=== PATIENT | female | born 2000 | race Two or more races ===

== ENCOUNTER 2021-11-22 04:28 | Emergency (ER) | payer MEDICAID, OTHER ==
[~2021-11-22] VITALS: Ht 162.6 cm; Wt 88.5 kg
[2021-11-22] MEDS ORDERED: LIDOCAINE VISCOUS 2% 15ML UD PO ONE (06:15)
[2021-11-22] MEDS ORDERED: ALUM & MAG HYDROX-SIMETH LIQ(MAALOX) 30 ML PO ONE (06:15)
[2021-11-22] MEDS ORDERED: FAMOTIDINE 20 MG TAB PO ONE (06:15)
[2021-11-22 07:03] LABS: Urine Bacteria FEW /hpf (None Seen); Urine Blood 1+ /uL (Negative); Urine Mucus FEW (None Seen); Urine Specific Gravity 1.026 (1.001-1.035); Urine WBC 1 /hpf (0 - 5)
[2021-11-22 08:27] LABS: Basophils # (auto) 0 10 ^3/uL (0-0.2); Basophils % (auto) 0.2 % (0.0-2.0); Eosinophils # (auto) 0 10 ^3/uL (0-0.8); Eosinophils % (auto) 0.1 % (0.0-7.0); Hematocrit 39.4 % (36.0-46.0); Hemoglobin 13.8 g/dL (12.2-16.2); Lymphocytes # (auto) 1.5 10 ^3/uL (0.4-5.4); Mean Corpuscular Hemoglobin 31.4 pg (28.0-32.0); Mean Corpuscular Hgb Conc. 34.9 g/dL (32.0-36.0); Monocytes # (auto) 0.6 10 ^3/uL (0-1.3); Monocytes % (auto) 4.3 % (0.0-12.0); Neutrophils # (auto) 12.5 10 ^3/uL (1.6-8.6); Neutrophils % (auto) 85.4 % (37.0-80.0); Nucleated Red Blood Cells % 0.1 %; Red Blood Cells 4.38 10^6/uL (4.0-5.20); Red Cell Distribution Width 13.1 % (11.8-14.3); White Blood Cell 14.7 10^3/uL (4.4-10.8)
[2021-11-22 08:33] LABS: Potassium 3.7 mmol/L (3.5-5.1)
[2021-11-22 08:44] LABS: Albumin 3.8 g/dL (3.4-5.0); Bilirubin, Total 0.5 mg/dL (0.2-1.0); Calcium 8.6 mg/dL (8.5-10.1); Total Protein 7.1 g/dL (6.4-8.2)
[2021-11-22 11:52] VITALS: BP 118/72
[2021-11-22] MEDS ORDERED: OMEP-434 PO (11:54)
== END 2021-11-22 12:02 | disposition home or self-care (01) ==
LOC: ER 04:28
DX: K21.9 Gastro-esophageal reflux disease without esophagitis (principal); Z79.899 Other long term (current) drug therapy
CPT/HCPCS: 36415; 80053; 81001; 81025; 85025; 93005

== ENCOUNTER 2023-04-24 22:36 | Emergency (ER) | payer MEDICAID ==
[~2023-04-24] VITALS: Ht 154.9 cm; Wt 69.2 kg
[~2023-04-24 22:36] MED LIST: OMEP-434 PO
[2023-04-24] MEDS ORDERED: diphenhdrAMINE HCL 25 MG CAP PO ONE (23:30)
[2023-04-24] MEDS ORDERED: TETANUS-DIPTH-ACEL PERTUSSIS 0.5ML SYR Tdap IM ONE (23:30)
[2023-04-24] MEDS ORDERED: DexAMETHasone SOD PHOS 10MG/1ML VIAL INJ IM ONE (23:30)
[2023-04-24 23:44] VITALS: BP 109/70
[2023-04-24] MEDS ORDERED: DIPH25TA54 PO (23:58)
[2023-04-24] MEDS ORDERED: DOXY-286 PO (23:58)
== END 2023-04-25 00:16 | disposition home or self-care (01) ==
LOC: ER 22:36
DX: S00.561A Insect bite (nonvenomous) of lip, initial encounter (principal); W57.XXXA Bitten or stung by nonvenomous insect and other nonvenomous arthropods, initial encounter; Y93.89 Activity, other specified; Y92.89 Other specified places as the place of occurrence of the external cause; Y99.8 Other external cause status
CPT/HCPCS: 90471; 90715; 96372; 99284; J1100

== ENCOUNTER 2025-09-09 15:25 | Emergency (ER) | payer MEDICAID ==
[~2025-09-09] VITALS: Ht 160 cm; Wt 85.1 kg
[~2025-09-09 15:25] MED LIST changes: +DIPH25TA54 PO; +DOXY-286 PO
[2025-09-09 16:45] LABS: Hematocrit 35.8 % (36.0-46.0); Hemoglobin 13.0 g/dL (12.2-16.2); Mean Corpuscular Hemoglobin 32.6 pg (28.0-32.0); Mean Corpuscular Volume 89.8 fL (80.0-100.0); Nucleated Red Blood Cells % 0.0 %
[2025-09-09 16:52] LABS: Potassium 4.1 mmol/L (3.5-5.1); Sodium 140 mmol/L (136-145)
[2025-09-09 16:53] LABS: Calcium 8.7 mg/dL (8.7-10.4); Carbon Dioxide 21 mmol/L (20-31)
[2025-09-09 16:58] LABS: BUN/Creatinine Ratio 9.2 (10.0-20.0); Glucose 89 mg/dL (74-106)
[2025-09-09 17:12] LABS: Anion Gap 12 (5-15)
[2025-09-09 17:13] LABS: Blood Urea Nitrogen 8 mg/dL (9-23); Chloride 107 mmol/L (98-107)
--- NOTE | 2025-09-09 19:35 | ED.PDOC ---
HPI Allergic reaction HPI Comments 24-year-old female presents with chief complaint of swelling to bilateral hands and itchiness. Patient reports on having a recent allergic reaction to unknown allergen a few days ago and and being treated with prednisone, Bactrim, and topical ointment. She states on symptoms returning, today, for unknown reason. No reported history of known allergies. Denies any further acute symptoms. Chief Complaint: Allergic Reaction Time Seen by MD: 16:00 Reviewed Notes: Nurses Notes, Medications, Allergies Allergies: Coded Allergies: NO KNOWN ALLERGIES (Unverified , 11/22/21) Home Meds Active Scripts Diphenhydramine Hcl (Benadryl Allergy) 25 Mg Tab, 1 TAB PO Q6HR, #20 TAB as needed for allergy sx Prov:YANGRACHNAALDA Q [employer] F[employer]ER 04/24/23 Doxycycline Hyclate (DOXYCYCLINE HYCLATE) 100 Mg Tab, 1 TAB PO BID for 10 Days, #20 TAB Prov:YANGNORALDA Q [employer] 04/24/23 Omeprazole Magnesium (Omeprazole) 20 Mg Tab, 20 MG PO DAILY for 14 Days, #14 TAB Prov:JEFF LEMOS MD 11/22/21 Information Source: Patient Mode of Arrival: Ambulatory Past Medical History PAST MEDICAL HISTORY: Denies Surgical History: Denies all surgeries 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 History: No Pertinent 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 OPERATOR History Family History Family History: Reviewed,noncontributory to illness Social History Smoker: Non-Smoker Alcohol: Denies ETOH Use Drugs: Denies Drug Use Lives In: Home All Other Systems: Reviewed and Negative (Comprehensive review of system) Physical Exam General Appearance: No Apparent Distress, Normal HEENT: Normal ENT Inspection, Pharynx Normal, TMs Normal Neck: Full Range of Motion, Non-Tender, Normal, Normal Inspection Respiratory: Chest Non-Tender, Lungs Clear, No Accessory Muscle Use, No Respiratory Distress, Normal Breath Sounds Cardiovascular: No Edema, No JVD, No Murmur, No Gallop, Normal Peripheral Pulses, Regular Rate/Rhythm Breast Exam: Deferred Gastrointestinal: No Organomegaly, Non Tender, No Pulsatile Mass, Normal Bowel Sounds, Soft Genitalia: Deferred Pelvic: Deferred Rectal: Deferred Extremities: No calf tenderness, Normal capillary refill, Normal range of motion, Non-tender, No pedal edema, Swelling (Bilateral hand swelling) Musculoskeletal : Apperance: Normal Neurologic: Alert, can 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 Was a procedure done?: No Differential diagnosis (all) Differential Diagnosis: Anaphylaxis, Angioedema, Contact Dermatitis, Drug Reaction, Urticaria X-Ray, Labs, Meds, VS Vital Signs Date Time Temp Pulse Resp B/P (MAP) Pulse Ox O2 Delivery O2 Flow Rate FiO2 09/09/25 20:19 97.8 84 16 120/80 (93) 97 97.8 09/09/25 15:42 97.9 18 18 125/61 99 97.9 Lab Test 09/09/25 16:22 Range/Units White Blood Count 8.6 4.4-10.8 10^3/uL Red Blood Count 3.99 L 4.0-5.20 10^6/uL Hemoglobin 13.0 12.2-16.2 g/dL Hematocrit 35.8 L 36.0-46.0 % Mean Corpuscular Volume 89.8 80.0-100.0 fL Mean Corpuscular Hemoglobin 32.6 H 28.0-32.0 pg Mean Corpuscular Hemoglobin Concent 36.3 H 32.0-36.0 g/dL Red Cell Distribution Width 13.3 11.8-14.3 % Platelet Count 184 140-450 10^3/uL Mean Platelet Volume 8.6 6.9-10.8 fL Neutrophils (%) (Auto) 79.2 37.0-80.0 % Lymphocytes (%) (Auto) 13.8 10.0-50.0 % Monocytes (%) (Auto) 5.6 0.0-12.0 % Eosinophils (%) (Auto) 1.2 0.0-7.0 % Basophils (%) (Auto) 0.2 0.0-2.0 % Neutrophils # (Auto) 6.8 1.6-8.6 10 ^3/uL Lymphocytes # (Auto) 1.2 0.4-5.4 10 ^3/uL Monocytes # (Auto) 0.5 0-1.3 10 ^3/uL Eosinophils # (Auto) 0.1 0-0.8 10 ^3/uL Basophils # (Auto) 0 0-0.2 10 ^3/uL Nucleated Red Blood Cells 0.0 % Sodium Level 140 136-145 mmol/L Potassium Level 4.1 3.5-5.1 mmol/L Chloride Level 107 98-107 mmol/L Carbon Dioxide Level 21 20-31 mmol/L Anion Gap 12 5-15 Blood Urea Nitrogen 8 L 9-23 mg/dL Creatinine 0.87 0.550-1.02 mg/dL Glomerular Filtration Rate Calc 95 >90 mL/min BUN/Creatinine Ratio 9.2 L 10.0-20.0 Serum Glucose 89 74-106 mg/dL Calcium Level 8.7 8.7-10.4 mg/dL Current Medications Medications (Trade) Dose Ordered Sig/Sabine Route Start Time Stop Time Status Last Admin Sodium Chloride 1,000 ml @ 1,000 mls/hr Q1H ONCE IV 09/09/25 19:15 09/09/25 20:14 DC 09/09/25 20:17 Methylprednisolone Sodium Succinate (Solu Medrol) 62.5 mg ONCE ONCE IV 09/09/25 19:15 09/09/25 19:18 DC 09/09/25 20:14 Diphenhydramine HCl (Benadryl Injection) 25 mg ONCE ONCE IV 09/09/25 19:15 09/09/25 19:18 DC 09/09/25 20:13 Famotidine (Pepcid Injection) 20 mg ONCE ONCE IV 09/09/25 19:15 09/09/25 19:18 DC 09/09/25 20:13 Time of 1ST Reevaluation: 16:30 Reevaluation 1ST: Unchanged Patient Education/Counseling: Diagnosis, Treatment, Need For Follow Up Family Education/Counseling: No Family Present SEPSIS Sepsis Screen Date sepsis recognized/suspect: Sep 09, 2025 Time Sepsis recognized/suspect: 1546 Recent Procedure: No On Antibiotic Therapy: No Respiratory Rate >20: No Heart Rate >90: No Temp<36 C (96.8 F) or >38.3 C: No SBP <90 or MAP <65 mmHG: No New Acute Mental Status Change: No Is the patient on CPAP, BIPAP,: No Vital Signs Date Time Temp Pulse Resp B/P (MAP) Pulse Ox O2 Delivery O2 Flow Rate FiO2 09/09/25 20:19 97.8 84 16 120/80 (93) 97 97.8 09/09/25 15:42 97.9 18 18 125/61 99 97.9 Laboratory Tests Test 09/09/25 16:22 White Blood Count 8.6 10^3/uL (4.4-10.8) Medications Medications Dose Ordered Sig/Sabine Route Start Time Stop Time Status Last Admin Dose Admin Diphenhydramine HCl 25 mg ONCE ONCE IV 09/09/25 19:15 09/09/25 19:18 DC 09/09/25 20:13 Famotidine 20 mg ONCE ONCE IV 09/09/25 19:15 09/09/25 19:18 DC 09/09/25 20:13 Methylprednisolone Sodium Succinate 62.5 mg ONCE ONCE IV 09/09/25 19:15 09/09/25 19:18 DC 09/09/25 20:14 Sodium Chloride 1,000 ml @ 1,000 mls/hr Q1H ONCE IV 09/09/25 19:15 09/09/25 20:14 DC 09/09/25 20:17 Departure 1 Departure Time of Disposition: 20:48 (Patient likely with a allergic reaction. Patient's symptoms appear to have improved. We will discharge patient home with outpatient follow up) Impression: Primary Impression: Allergic reaction Disposition: HOME / SELF CARE / HOMELESS Condition: Stable Additional Instructions: Please continue to take your regular medications and follow up with your regular doctors. If your symptoms worsen or you have any other concerns please return to the emergency room Discharged With: Self Critical Care Note Critical Care Time?: No Stability Stability form required: No Heart Score Heart Score: Heart Score Response (Comments) Value History N/A 0 EKG N/A 0 Age N/A 0 Risk Factors N/A 0 Troponin N/A 0 Total 0 I personally scribed for JEREMY RAMSAY MD ([email or web address]) on 09/09/25 at 19:35. Electronically submitted by Kota Cornell ([email or web address]). JEREMY RAMSAY MD Sep 09, 2025 19:35
[2025-09-09] MEDS: diphenhydrAMINE HCL 50 MG/1 ML VL IV ONE (20:13)
[2025-09-09] MEDS: FAMOTIDINE (10MG/ML) 2ML VL IV ONE (20:13)
[2025-09-09] MEDS: methylPREDNISolone SOD SUCC 125 MG/2 ML VL IV ONE (20:14)
[2025-09-09] MEDS: SODIUM CHLORIDE 0.9% 1,000 ML IV ONE (20:17)
[2025-09-09 20:19] VITALS: BP 120/80; PULSE 84; RESP 16; TEMP 97.8; O2SAT 97
== END 2025-09-09 22:02 | disposition home or self-care (01) ==
LOC: ER 15:25
DX: M79.89 Other specified soft tissue disorders (principal); T78.40XA Allergy, unspecified, initial encounter; Z79.899 Other long term (current) drug therapy; X58.XXXA Exposure to other specified factors, initial encounter
CPT/HCPCS: 36415; 80048; 85025; 96361; 96374; 96375; 99284; J1200; J2919; J3490; J7030